=== PATIENT | male | born 1950 | race Caucasian/White ===

== ENCOUNTER 2021-07-19 09:09 | Day surgery (SDC) | payer MEDICARE, OTHER ==
[2021-07-15 09:33] VITALS: BMI 30.5
[~2021-07-19 09:09] MED LIST: LIDOCAINE 1% (10MG/ML) FOR IV START INTRADERMA PRN
[2021-07-19 09:36] VITALS: RESP 16; TEMP 97.9
[2021-07-19] MEDS: LACTATED RINGERS 1,000 ML IV SCH ×2 (09:40→10:31)
[2021-07-19] MEDS ORDERED: LIDOCAINE 1% INJ 10MG/ML (20 ML MDV) ONE (10:31)
[2021-07-19] MEDS ORDERED: PROPOFOL 10 MG/ML 20 ML VIAL IV ONE (10:31)
--- NOTE | 2021-07-19 10:44 | P.PCN ---
Date of Procedure: 07/19/21 Procedure(s) Performed: BRIEF HISTORY: Patient is a 70-year-old, pleasant, white male scheduled for an upper endoscopy as a part of evaluation of throat irritation with excessive phlegm for several years duration. PROCEDURE PERFORMED: Esophagogastroduodenoscopy with biopsy. PREOPERATIVE DIAGNOSIS: Throat irritation, intermittent dysphagia for several years duration. IV sedation per anesthesia. PROCEDURE: After informed consent was obtained, the patient was brought into the endoscopy unit. IV sedation was administered by Anesthesia under continuous monitoring. Initially the Olympus GIF-140 video endoscope was inserted into the mouth. Esophagus intubated without any difficulty. It was gradually advanced into the distal esophagus and the lower esophageal sphincter appeared very tight. With moderate pressure I was able to advance the scope into the stomach and duodenum and carefully examined. The bulb and the second part of the duodenum appeared normal. The scope at this time was withdrawn to the stomach, adequately insufflated with air, and upon careful examination, mucosa of the antrum, body, cardia and the fundus appeared normal. The scope was then withdrawn into the esophagus. The GE junction was located at 41 cm from the incisors. Once again the lower esophageal sphincter appeared very tight but no obvious stricture identified. The rest of the esophagus appeared normal. There were no erosions or ulcerations seen, biopsies were done from the mid and distal esophagus and the patient tolerated the procedure well. IMPRESSION: 1. Tight lower esophageal sphincter but no evidence of esophageal stricture, suspicious for esophageal achalasia. 2. Normal-appearing esophagus with no evidence of esophagitis. RECOMMENDATIONS: The findings of this examination were discussed with the patient as well as his family. He was advised to follow with the biopsy results. If he continues remains symptomatic he may benefit from esophageal manometry to evaluate for esophageal achalasia.
[2021-07-19 11:07] VITALS: BP 114/75; PULSE 66
== END 2021-07-19 11:53 | disposition home or self-care (01) ==
LOC: ORWHC2ENDO 09:09
PROVIDERS: ATTEND Internal Medicine Gastroenterology
DX: R13.10 Dysphagia, unspecified (principal); E78.5 Hyperlipidemia, unspecified; I10 Essential (primary) hypertension; Z79.899 Other long term (current) drug therapy; Z79.82 Long term (current) use of aspirin
CPT/HCPCS: 88305; 43239; J2001; J2704

== ENCOUNTER → 2021-07-29 | Day surgery (SDC) | payer MEDICARE, OTHER ==
[2021-07-27 09:33] VITALS: BMI 29.7
[2021-07-29 13:29] VITALS: BP 143/90; PULSE 78; RESP 18; TEMP 97.8
--- NOTE | 2021-08-05 16:05 | PCN ---
PROCEDURE NOTE DATE OF PROCEDURE: July 29, 2021. BRIEF HISTORY: The patient is a 70-year-old pleasant white male who is presently being evaluated for dysphagia, excessive throat irritation and phlegm in his throat for the last several years duration. As a part of evaluation, he had an upper endoscopy done that showed tight lower esophageal sphincter, but no evidence of esophageal stricture and this was suspicious for esophageal achalasia. The patient hence scheduled for esophageal manometry to evaluate this further. PROCEDURE PERFORMED: High resolution impedance esophageal manometry. PREOPERATIVE DIAGNOSIS: Abnormal upper endoscopy revealing tight lower esophageal sphincter suspicious for esophageal achalasia. IV SEDATION: None. PROCEDURE: After informed consent was obtained from the patient, he was brought into the endoscopy unit. The procedure was performed by Endoscopy nurse Tong. The esophageal manometry catheter was passed from the external ostium, gently advanced into the esophagus and stomach and the study was performed using viscous swallows and clear liquid, the study was interpreted using Swanton classification. Following are the study results: 1. Lower esophageal sphincter data: Mean IRP is 37 mmHg. 2. Lower esophageal body: Peristaltic contractions are 0%. 3. Distal mean DCI is 494 mmHg.S.CM. 4. study showed complete transit for liquid was 100% and complete transit for viscous was 100%. 5. The pattern of swallow showed isometric contractions consistent with achalasia type 2. INTERPRETATION: The above esophageal manometry study shows increased mean integral residual pressures and evidence of no peristalsis in the esophageal body and the picture is consistent with esophageal achalasia. RECOMMENDATIONS: The patient will be seen in the office for further management of esophageal achalasia. MMODL / IJN: [id number] /
== END ==
LOC: ORWHC2ENDO 13:14
PROVIDERS: ATTEND Internal Medicine Gastroenterology
DX: K21.9 Gastro-esophageal reflux disease without esophagitis (principal)
CPT/HCPCS: 91010